=== PATIENT | female | born 1945 | race Caucasian/White ===

== ENCOUNTER → 2020-03-09 | Outpatient (CLI) | payer MEDICARE ==
[~2020-03-09] VITALS: Ht 167.7 cm; Wt 109.1 kg
[~2020-03-09] MED LIST: LIDOCAINE 1% INJ 20 ML 20 ML VIAL INJ ONE
[2020-03-09 14:09] LABS: HEMOGLOBIN 12.8 G/DL (11.5-16.0); MEAN PLATELET VOLUME 10.4 FL (7.4-10.4); RED CELL DISTRIBUTION WIDTH 14.2 % (10.0-14.5); WHITE BLOOD COUNT 3.9 10^3/uL (4.3-11.0)
[2020-03-09 14:20] LABS: PROTHROMBIN TIME PATIENT 13.7 SEC (12.2-14.7)
--- NOTE | 2020-03-10 09:32 | Diagnostic Imaging Report ---
INDICATION: Left-sided thyroid nodules. Patient presents for ultrasound-guided fine-needle aspiration. Patient was brought to the procedure room and placed on table in the supine position. Ultrasound imaging of the left neck was performed to evaluate appropriate entry site. A total of 4 passes were made into the circumscribed hypoechoic nodule anteriorly located in the midportion of the left lobe utilizing 25-gauge needles and fine needle aspiration technique. A single pass was performed with a Rotex needle as well. Next, total 4 passes were made into the hyperechoic mass slightly more inferior and more posterior utilizing 25-gauge needles and fine-needle aspiration technique. Single pass was made with a Rotex needle. Patient tolerated the procedure well and left the department in stable condition. IMPRESSION: Successful fine-needle aspiration and Rotex biopsy of 2 left-sided thyroid nodules, as described. Pathology results are currently pending. Dictated by: Dictated on workstation # [id number]
== END ==
LOC: RAD 13:25
PROVIDERS: ATTEND Otolaryngology Otolaryngology/Facial Plastic Surgery
DX: E04.2 Nontoxic multinodular goiter (principal)
CPT/HCPCS: 10006; 36415; 85027; 85610; 85730; 88173; 88305